=== PATIENT | female | born 1975 | race Caucasian/White ===

== ENCOUNTER 2018-08-12 18:00 | Emergency (ER) | payer OTHER, SELFPAY ==
[2018-08-12 18:13] VITALS: BP 140/94; PULSE 101; RESP 18; TEMP 36.7; O2SAT 97
[2018-08-12] MEDS: TET,DIPH,PERTUSS(ACELL),VAC/PF 0.5 ML SYRINGE IM (18:16)
--- NOTE | 2018-08-12 18:17 | ED.WOUNDLAC ---
HPI - Wound/Laceration <KIMMY Francis - Last Filed: 08/12/18 21:10> General Chief Complaint: Wound/Laceration Stated Complaint: laceration to 5th digit right hand Time Seen by Provider: 08/12/18 18:17 Source: patient Mode of arrival: ambulatory Limitations: no limitations History of Present Illness HPI narrative: 43-year-old female with history of Crohn's disease is a nonsmoker here for complaint of laceration to the base of the 5th finger of the right hand. She states that earlier today she was doing dishes when a glass broke causing her to cause laceration. She denies any other injuries or concerns. she states her last tetanus was a few months ago. Bleeding is controlled with direct pressure. Related Data Home Medications Medication Instructions Recorded Confirmed ACETAMINOPHEN (#TYLENOL) 500 mg PO PRN #0 10/28/11 MULTIVITAMIN 1 cap PO QDAY #0 09/11/12 Previous Rx's Medication Instructions Recorded citalopram 20 mg PO QDAY #90 tab 11/07/17 Allergies Allergy/AdvReac Type Severity Reaction Status Date / Time No Known Drug Allergies Allergy Verified 08/12/18 18:18 Review of Systems <KIMMY Francis - Last Filed: 08/12/18 21:10> Constitutional Denies chills, Denies fever(s), Denies lethargy and Denies weakness Eyes Denies change in vision, Denies eye discharge, Denies irritation and Denies loss of vision ENT Ears, Nose, Mouth, and Throat: Denies change in voice, Denies neck pain and Denies sore throat Cardiovascular Denies chest pain, Denies irregular heart rhythm, Denies lightheadedness, Denies palpitations, Denies dyspnea, Denies dyspnea on exertion and Denies orthopnea Respiratory Denies cough, Denies dyspnea, Denies dyspnea on exertion and Denies wheezing Genitourinary Denies hematuria, Denies flank pain, Denies urinary incontinence and Denies urinary urgency Musculoskeletal Denies neck pain Comments: Laceration to a base of 5th digit to right hand Integumentary/Breasts Denies pruritus, Denies erythema, Denies rash and Denies wounds Neurologic Denies confusion, Denies loss of vision and Denies weakness Psychiatric Denies anxiety, Denies confusion, Denies depression, Denies homicidal ideation and Denies suicidal ideation Endocrine Denies palpitations Hematologic/Lymphatic Denies easy bruising Allergic/Immunologic Denies wheezing Exam <KIMMY Francis - Last Filed: 08/12/18 21:10> Initial Vital Signs Initial Vital Signs: Vital Signs Temperature 98.1 F 08/12/18 18:13 Pulse Rate 101 H 08/12/18 18:13 Respiratory Rate 18 08/12/18 18:13 Blood Pressure 140/94 H 08/12/18 18:13 Pulse Oximetry 97 08/12/18 18:13 Const General: cooperative and well developed Nutritional Appearance: well nourished Orientation: alert, awake, oriented x3 and not confused HENOH Mouth: oral mucosae normal and moist mucous membranes Eyes Conjunctivae: conjunctivae normal Sclera: sclerae normal Pupils: PERRL EOM: EOM intact bilaterally Resp Effort & Inspection: normal respiratory effort, able to speak in complete sentences, no respiratory distress and no use of accessory muscles Auscultation: clear to auscultation bilaterally, no rales, no rhonchi and no wheezes Cardio Rate: regular rate Rhythm: regular rhythm Heart Sounds: no click, no gallops, no murmurs and no rubs Pulses: normal peripheral pulses Skin General: no rashes or lesions noted, No jaundice and No petechiae Neuro General: alert, oriented x3, gait normal and no focal motor deficits Speech: speech normal Extrem Other: 2 cm laceration to the lateral ulnar aspect MCP of the 5th right digit. Distal sensation is intact. Distal range of motion is intact. Distal cap refill is less than 2 sec. <Angie Gage DO - Last Filed: 08/12/18 22:40> Initial Vital Signs Initial Vital Signs: Vital Signs Temperature 98.1 F 08/12/18 18:13 Pulse Rate 101 H 08/12/18 18:13 Respiratory Rate 18 08/12/18 18:13 Blood Pressure 140/94 H 08/12/18 18:13 Pulse Oximetry 97 08/12/18 18:13 Procedures <KIMMY Francis - Last Filed: 08/12/18 21:10> Laceration Repair Laceration 1: Site: hand Side (If applicable): right Size (cm): 2 Description: flap Depth: simple, single layer Local Anesthetic: lidocaine 1% Amount of anesthesia used (mL): 2 Pre-repair: wound explored ( No foreign bodies appreciated) and irrigated extensively Skin layer closed with: nylon Size (cm): 5-0 Number of sutures: 5 Technique: simple, interrupted Course <KIMMY Francis - Last Filed: 08/12/18 21:10> Orders Ordered: Discontinued Medications Diphtheria/Tetanus/Acell Pertussis (Adacel) 0.5 ml IM .ONCE ONE Stop: 08/12/18 18:16 Last Admin: 08/12/18 18:16 Dose: 0.5 ml Vital Signs - 8 hr 08/12/18 18:13 08/12/18 20:03 Temperature 98.1 F Pulse Rate 101 H 87 Respiratory Rate 18 16 Blood Pressure 140/94 H 120/84 Pulse Oximetry 97 99 <Angie Gage DO - Last Filed: 08/12/18 22:40> Orders Ordered: Discontinued Medications Diphtheria/Tetanus/Acell Pertussis (Adacel) 0.5 ml IM .ONCE ONE Stop: 08/12/18 18:16 Last Admin: 08/12/18 18:16 Dose: 0.5 ml Vital Signs - 8 hr 08/12/18 18:13 08/12/18 20:03 Temperature 98.1 F Pulse Rate 101 H 87 Respiratory Rate 18 16 Blood Pressure 140/94 H 120/84 Pulse Oximetry 97 99 MDM - Wound/Laceration <KIMMY Francis - Last Filed: 08/12/18 21:10> MDM Narrative Medical decision making narrative: laceration to the right hand was closed with 5 5-0 nylon simple interrupted sutures. Patient tolerated well no complication. Wound irrigated well with normal saline. Wound investigated for foreign bodies. No foreign bodies were appreciated. wound dressed with bacitracin dressing. Keep wound area clean and dry for 36 hr. After this timeframe may shower briefly. Dry wound after shower and dressed with bacitracin dress. Dress wound daily with bacitracin dressing. Sutures removed in 7-10 days. [id number] Tylenol or Motrin as needed for any discomfort. For any worsening symptoms or signs of infection return to the emergency room. Discharge Plan Departure Patient Disposition: Home Clinical Impression: Laceration of right hand Discharge Date/Time: 08/12/18 19:51 Interventions: ED Discharge Assessment Last Done: 08/12/18 20:03 Instructions: DI for Laceration Repair Activity Restrictions/Additional Instructions: laceration right hand was closed with 5 sutures. Wound was dressed with bacitracin dressing. Keep wound area clean and dry for 36 hr. After this timeframe may shower briefly. Dry wound after shower and dressed with bacitracin dress. Dress wound daily with bacitracin dressing. Sutures removed in 7-10 days. [id number] Tylenol or Motrin as needed for any discomfort. For any worsening symptoms or signs of infection return to the emergency room. Prescriptions: No Action ACETAMINOPHEN (#TYLENOL) 500 mg PO PRN Qty: 0 RF: 0 MULTIVITAMIN 1 cap PO QDAY Qty: 0 RF: 0 citalopram 20 MG tablet 20 mg PO QDAY Qty: 90 RF: 3 Referrals: Garrett Zapien MD [Primary Care Provider] - <Angie Gage DO - Last Filed: 08/12/18 22:40> Cosign ED Attending Cosignature Attestation: I was immediately available in the department for consultation. This documentation has been reviewed and I agree with assessment and plan. Supervised by Angie Gage DO
[2018-08-12 20:03] VITALS: BP 120/84; PULSE 87; RESP 16; O2SAT 99
== END 2018-08-12 19:51 | disposition home or self-care (01) ==
PROVIDERS: Emergency Provider Nurse Practitioner Family; Family Provider Internal Medicine; PCP Internal Medicine
DX: S61.216A Laceration without foreign body of right little finger without damage to nail, initial encounter (principal); W25.XXXA Contact with sharp glass, initial encounter
CPT/HCPCS: 12001; 90471; 99283; 90715

== ENCOUNTER → 2020-06-24 11:27 | Outpatient (CLI) | payer OTHER, SELFPAY ==
[2020-06-24 11:58] LABS: Add Manual Diff / Slide Review NO; Basophils Absolute Auto 100 /uL (0-100); Basophils Percent Auto 0.8 % (0-2); Eosinophils Absolute Auto 200 /uL (0-450); Hematocrit 37.9 % (36-46); Lymphocytes Absolute Auto 1300 /uL (1100-4500); Lymphocytes Percent Auto 19.6 % (25-40); Mean Corpuscular HGB Conc 34.4 % (30-36); Mean Corpuscular Hemoglobin 31.1 PG (26-34); Mean Corpuscular Volume 90.5 fL (80-100); Monocytes Absolute Auto 500 /uL (0-900); Monocytes Percent Auto 8.1 % (3-14); Neutrophils Absolute Auto 4500 /uL (1500-7000); Neutrophils Percent Auto 68.5 % (50-75); Platelet Count 372 X10^3/uL (150-400); Red Blood Cell Count 4.19 X10^6/uL (4.0-5.2); Red Cell Distribution Width 13.3 % (11.6-14.8); White Blood Cell Count 6.6 X10^3/uL (4.5-11.0)
[2020-06-24 12:08] LABS: Alanine Aminotransferase 41 IU/L (<35); Albumin Globulin Ratio 1.3 (1.0-2.8); Alkaline Phosphatase 76 U/L (38-126); Aspartate Aminotransferase 42 IU/L (14-36); BUN Creatinine Ratio 10.4 (6-22); Bilirubin Total 0.7 mg/dL (0.2-1.3); Blood Urea Nitrogen 8 mg/dL (7-17); Calcium 8.7 mg/dL (8.4-10.2); Carbon Dioxide 27 mmol/L (22-32); Chloride 105 mmol/L (98-107); Cholesterol 179 mg/dL (140-199); Estimated Glomerular Filt Rate > 60.0 mL/min (>60); Glucose 96 mg/dL (70-100); HDL Cholesterol 39 mg/dL (40-60); HEMOLYSIS < 15 (0-50); LDL Cholesterol Calculated 97 mg/dL (<100); Potassium 4.3 mmol/L (3.4-5.1); Sodium 138 mmol/L (137-145); Triglycerides 213 mg/dL (35-150)
[2020-06-24 12:25] LABS: Free T4, Direct Thyroxine 0.86 ng/dL (0.78-2.19)
[2020-06-24 12:38] LABS: Thyroid Stimulating Hormone 1.62 uIU/mL (0.47-4.68)
== END ==
PROVIDERS: Family Provider Internal Medicine; PCP Internal Medicine; Referring Provider Internal Medicine; Visit Provider Internal Medicine
DX: K50.90 Crohn's disease, unspecified, without complications (principal); D63.8 Anemia in other chronic diseases classified elsewhere
CPT/HCPCS: 36415; 80053; 80061; 84439; 84443; 85025

== ENCOUNTER → 2020-12-07 16:43 | Outpatient (CLI) | payer OTHER, SELFPAY ==
[2020-12-07 18:01] LABS: Alanine Aminotransferase 23 IU/L (<35); Albumin 4.2 g/dL (3.5-5.0); Albumin Globulin Ratio 1.4 (1.0-2.8); Alkaline Phosphatase 68 U/L (38-126); Aspartate Aminotransferase 26 IU/L (14-36); BUN Creatinine Ratio 17.4 (6-22); Bilirubin Total 0.2 mg/dL (0.2-1.3); Blood Urea Nitrogen 15 mg/dL (7-17); Calcium 8.9 mg/dL (8.4-10.2); Carbon Dioxide 28 mmol/L (22-32); Chloride 102 mmol/L (98-107); Estimated Glomerular Filt Rate > 60.0 mL/min (>60); Glucose 86 mg/dL (70-100); HEMOLYSIS < 15 (0-50); Potassium 4.1 mmol/L (3.4-5.1); Sodium 137 mmol/L (137-145); Total Protein 7.2 g/dL (6.3-8.2)
[2020-12-07 18:46] LABS: TSH w/ Reflex to FT4 3.29 uIU/mL (0.47-4.68)
== END ==
PROVIDERS: Family Provider Internal Medicine; PCP Internal Medicine; Referring Provider Internal Medicine; Visit Provider Internal Medicine
DX: K50.90 Crohn's disease, unspecified, without complications (principal); D63.8 Anemia in other chronic diseases classified elsewhere; R63.1 Polydipsia
CPT/HCPCS: 36415; 80053; 84443

== ENCOUNTER → 2021-07-23 15:54 | Outpatient (CLI) | payer OTHER, SELFPAY ==
[2021-07-23 17:13] LABS: Add Manual Diff / Slide Review NO; Basophils Absolute Auto 100 /uL (0-100); Basophils Percent Auto 0.8 % (0-2); Eosinophils Absolute Auto 200 /uL (0-450); Eosinophils Percent Auto 1.8 % (2-4); Hematocrit 37.5 % (36-46); Hemoglobin 13.1 g/dL (12.0-16.0); Lymphocytes Absolute Auto 2300 /uL (1100-4500); Lymphocytes Percent Auto 24.6 % (25-40); Mean Corpuscular HGB Conc 34.9 % (30-36); Mean Corpuscular Volume 88.7 fL (80-100); Monocytes Absolute Auto 500 /uL (0-900); Monocytes Percent Auto 5.7 % (3-14); Neutrophils Absolute Auto 6200 /uL (1500-7000); Neutrophils Percent Auto 67.1 % (50-75); Platelet Count 357 X10^3/uL (150-400); Red Blood Cell Count 4.23 X10^6/uL (4.0-5.2); Red Cell Distribution Width 13.3 % (11.6-14.8); White Blood Cell Count 9.2 X10^3/uL (4.5-11.0)
[2021-07-23 17:50] LABS: Erythrocyte Sedimentation Rate 18 MM/HR (0-20)
[2021-07-23 17:52] LABS: Alanine Aminotransferase 27 IU/L (<35); Albumin 4.6 g/dL (3.5-5.0); Albumin Globulin Ratio 1.4 (1.0-2.8); Alkaline Phosphatase 85 U/L (38-126); Aspartate Aminotransferase 36 IU/L (14-36); BUN Creatinine Ratio 17.6 (6-22); Bilirubin Total 0.4 mg/dL (0.2-1.3); Blood Urea Nitrogen 15 mg/dL (7-17); C-Reactive Protein Quant 1.2 mg/dL (<1.0); Calcium 9.4 mg/dL (8.4-10.2); Carbon Dioxide 22 mmol/L (22-32); Chloride 104 mmol/L (98-107); Estimated Glomerular Filt Rate > 60.0 mL/min (>60); Globulin 3.2 g/dL (1.7-4.1); Glucose 84 mg/dL (70-100); HEMOLYSIS 15 (0-50); Potassium 3.7 mmol/L (3.4-5.1); Sodium 138 mmol/L (137-145); Total Protein 7.8 g/dL (6.3-8.2)
[2021-07-23 18:08] LABS: Prolactin 12.3 ng/mL (3.0-18.6)
[2021-07-23 18:20] LABS: TSH w/ Reflex to FT4 2.84 uIU/mL (0.47-4.68)
== END ==
PROVIDERS: Family Provider Internal Medicine; PCP Internal Medicine; Referring Provider Internal Medicine; Visit Provider Internal Medicine
DX: K50.00 Crohn's disease of small intestine without complications; M25.50 Pain in unspecified joint; R51.9 Headache, unspecified; M79.10 Myalgia, unspecified site
CPT/HCPCS: 36415; 80053; 84146; 84443; 85025; 85651; 86140

== ENCOUNTER → 2021-10-11 16:22 | Outpatient (CLI) | payer OTHER, SELFPAY ==
[2021-10-11 17:11] LABS: COVID19 -Nasal RAPID Negative (Negative)
== END ==
PROVIDERS: Family Provider Internal Medicine; PCP Internal Medicine; Referring Provider Nurse Practitioner Family; Visit Provider Nurse Practitioner Family
DX: Z20.822 Contact with and (suspected) exposure to COVID-19 (principal)
CPT/HCPCS: 87635

== ENCOUNTER → 2021-10-21 15:08 | Outpatient (CLI) | payer OTHER, SELFPAY ==
[2021-10-22 03:41] LABS: Hepatitis B Core Antibody Negative (Negative)
[2021-10-24 12:07] LABS: Hepatitis B Virus HBV DNA not detected IU/mL (.)
== END ==
PROVIDERS: Family Provider Internal Medicine; PCP Internal Medicine; Referring Provider Internal Medicine Rheumatology; Visit Provider Internal Medicine Rheumatology
DX: Z87.19 Personal history of other diseases of the digestive system (principal); Z79.899 Other long term (current) drug therapy
CPT/HCPCS: 36415; 86704

== ENCOUNTER → 2021-12-29 15:39 | Outpatient (CLI) | payer OTHER, SELFPAY ==
[2021-12-30 04:58] LABS: Hepatitis B Core Antibody Positive (Negative)
[2021-12-31 19:13] LABS: Hepatitis B Virus HBV DNA not detected IU/mL (.)
== END ==
PROVIDERS: Family Provider Internal Medicine; PCP Internal Medicine; Referring Provider Internal Medicine Rheumatology; Visit Provider Internal Medicine Rheumatology
DX: Z87.19 Personal history of other diseases of the digestive system (principal); Z79.899 Other long term (current) drug therapy
CPT/HCPCS: 36415; 86704

== ENCOUNTER → 2024-11-11 11:36 | Outpatient (CLI) | payer OTHER, SELFPAY ==
[2024-11-11 12:41] LABS: COVID-19 CEPHEID 4-PLEX PCR Negative (Negative); Influenza A - CEPHEID Flu A POSITIVE (NEGATIVE); Influenza B - CEPHEID Flu B NEGATIVE (NEGATIVE); Respiratory Syncytial Virus Negative (Negative)
== END ==
PROVIDERS: Family Provider Internal Medicine; PCP Internal Medicine; Visit Provider Physician Assistant
DX: R05.9 Cough, unspecified (principal)
CPT/HCPCS: 0241U